=== PATIENT | female | born 1960 | race Caucasian/White ===

== ENCOUNTER 2022-02-14 19:37 | Emergency (ER) | payer OTHER ==
[~2022-02-14] VITALS: Ht 157.5 cm; Wt 112.9 kg
[2022-02-14 20:12] VITALS: BP_SYST 148
--- NOTE | 2022-02-14 20:22 | NUR ---
Patient triaged and placed in waiting room. VSS and patient appears in no acute distress at this time. C/O HEAVY VAGINAL BLEEDING AFTER MENOPAUSE. SOAKED 6 PADS TODAY.
[2022-02-14 21:06] LABS: BASOPHILS # (AUTO) 0.2 K/uL (0.0-0.2); BASOPHILS % (AUTO) 1.5 % (0.0-2.0); EOSINOPHILS # (AUTO) 0.2 K/uL (0.0-0.4); EOSINOPHILS % (AUTO) 1.7 % (0.0-4.0); HEMATOCRIT 40.5 % (36-48); LYMPHOCYTES # (AUTO) 3.6 K/uL (1.0-5.5); LYMPHOCYTES % (AUTO) 34.1 % (20.5-51.5); MEAN CORPUSCULAR VOLUME 77 fL (79.0-98.0); MONOCYTES # (AUTO) 0.6 K/uL (0.0-1.0); MONOCYTES % (AUTO) 5.3 % (1.7-9.3); NEUTROPHILS % (AUTO) 57.4 % (40.0-70.0); PLATELET COUNT (AUTO) 274 K/uL (130-430); RED CELL DISTRIBUTION WIDTH 14.4 % (9.0-15.0); WHITE BLOOD COUNT (AUTO) 10.5 K/uL (4.8-10.8)
[2022-02-14 21:08] LABS: BILIRUBIN,URINE NEGATIVE (NEGATIVE); BLOOD, URINE 3+ (NEGATIVE); CLARITY/URINE SL CLOUDY (CLEAR); COLOR,URINE YELLOW (YELLOW); GLUCOSE,URINE NEGATIVE (NEGATIVE); KETONES,URINE TRACE (NEGATIVE); LEUKOCYTE ESTERASE ,URINE NEGATIVE (NEGATIVE); NITRITE, URINE NEGATIVE (NEGATIVE); PROTEIN URINE NEGATIVE (NEGATIVE); UROBILINOGEN,URINE 0.2 (0.2-1.0)
[2022-02-14 21:18] LABS: CALCIUM 9.4 mg/dL (8.4-11.0); CREATININE 1.09 mg/dL (0.55-1.30); POTASSIUM 3.6 mmol/L (3.5-5.1)
[2022-02-14 21:39] LABS: ALBUMIN 3.6 g/dL (3.4-4.8)
[2022-02-14 21:59] LABS: BACTERIA,URINE RARE /HPF (None Seen); MUCUS,URINE 1+ /LPF (None Seen); RBC,URINE >100 /HPF (0-3); WBC,URINE 0-3 /HPF (0-3)
[2022-02-14 23:31] LABS: PROTHROMBIN TIME 9.8 SECS (9.5-12.5)
--- NOTE | 2022-02-15 00:30 | NUR ---
Received pt AAOx4, pt w/ c/o cont. vaginal bleed that started earlier 02/14/22. Pending MD abernathy
[2022-02-15 01:59] VITALS: BP_SYST 140
--- NOTE | 2022-02-15 01:59 | NUR ---
Patient given written and verbal discharge instructions and verbalizes understanding. ER MD discussed with patient the results and treatment provided. Patient in stable condition. ID arm band removed. Patient educated on bleeding assessment, its care management and to follow up with PMD and specialist. Pain Scale 0/10. Opportunity for questions provided and answered.
--- NOTE | 2022-02-15 02:20 | NUR ---
Note neetuone in EDM - 02/15/22 at 0225 by [id number] Patient given written and verbal discharge instructions and verbalizes understanding. ER discussed with patient the results and treatment provided. Patient in stable condition. ID arm band removed. Patient and grandson educated on care management and to follow up with Urologist and PMD. Pain Scale 0/10.Opportunity for questions provided and answered.
== END 2022-02-15 01:59 | disposition home or self-care (01) ==
LOC: SED 19:37
DX: N95.0 Postmenopausal bleeding (principal); Z88.0 Allergy status to penicillin; Z88.5 Allergy status to narcotic agent; Z79.899 Other long term (current) drug therapy
CPT/HCPCS: 36415; 76830-TC; 76857; 80053; 81000; 85025; 85610-TC; 85730-TC; 99284